=== PATIENT | female | born 1990 | race Hispanic/Latino ===

== ENCOUNTER 2017-10-24 19:24 | Emergency (ER) | payer OTHER ==
[2017-10-24] MEDS: METOCLOPRAMIDE INJ 10MG/2ML VIAL (J2765) IV (19:45)
[2017-10-24 19:58] LABS: BASO % 0.2 % (0.0-1.0); EOS # 0.2 10^3/uL (0.0-0.50); EOS % 1.2 % (0.0-3.0); HEMATOCRIT 44.2 % (36.0-47.0); HEMOGLOBIN 15.8 g/dl (12.0-16.0); IMMATURE GRANULOCYTE % 0.4 % (0-3.0); LYMPH # 2.2 10^3/uL (1.5-6.5); LYMPH % 16.4 % (24.0-44.0); MEAN CORPUSCULAR HEMOGLOBIN 31.3 pg (27.0-33.0); MEAN CORPUSCULAR HGB CONC 35.7 g/dl (32.0-36.5); MEAN CORPUSCULAR VOLUME 87.7 fl (80.0-96.0); MONO # 0.7 10^3/uL (0.0-0.8); MONO % 5.3 % (0.0-5.0); NEUTROPHILS # 10.2 10^3/uL (1.8-7.7); NEUTROPHILS % 76.5 % (36.0-66.0); PLATELET COUNT, AUTOMATED 355 10^3/uL (150-450); RED BLOOD COUNT 5.04 10^6/uL (4.00-5.40); RED CELL DISTRIBUTION WIDTH 12.2 % (11.5-14.5); WHITE BLOOD COUNT 13.3 10^3/uL (4.0-10.0)
[2017-10-24] MEDS: GASTROGRAFIN SOLUTION 30ML PO ×2 (20:15→20:45)
[2017-10-24 20:19] LABS: CONTROL LINE HCG INT CTR LINE PRESENT; HCG, SERUM QUALITATIVE NEGATIVE (NEGATIVE)
[2017-10-24 20:22] LABS: ALKALINE PHOSPHATASE 102 U/L (45-117); ALT/SGPT 161 U/L (12-78); ANION GAP 13 MEQ/L (8-16); AST/SGOT 60 U/L (7-37); BLOOD UREA NITROGEN 20 MG/DL (7-18); CARBON DIOXIDE LEVEL 18 MEQ/L (21-32); CHLORIDE LEVEL 110 MEQ/L (98-107); CREATININE FOR GFR 0.68 MG/DL (0.55-1.30); GLOMERULAR FILTRATION RATE > 60.0 (>60); GLUCOSE, FASTING 100 MG/DL (70-100); POTASSIUM SERUM 3.6 MEQ/L (3.5-5.1); SODIUM LEVEL 141 MEQ/L (136-145)
[2017-10-24 20:23] LABS: ALBUMIN 3.9 GM/DL (3.2-5.2); ALBUMIN/GLOBULIN RATIO 0.93 (1.00-1.93); BILIRUBIN,DIRECT 0.4 MG/DL (0.0-0.2); BILIRUBIN,TOTAL 1.1 MG/DL (0.2-1.0); LIPASE 192 U/L (73-393); TOTAL PROTEIN 8.1 GM/DL (6.4-8.2)
[2017-10-24] MEDS: NS 1,000 ML IV ×2 (21:00→23:25)
[2017-10-24] MEDS: MORPHINE 2 MG/ML 1ML SYRINGE (J2270) IV (21:25)
[2017-10-24] MEDS ORDERED: ISOVUE-370 76% 100ML VIAL (Q9967) As Ordered (21:27)
[2017-10-24 21:44] LABS: APPEARANCE, URINE CLOUDY (CLEAR); BACTERIA, URINE AUTO 3+ (NEGATIVE); BILIRUBIN, URINE AUTO 1+ (NEGATIVE); BLOOD, URINE BLOOD 3+ (NEGATIVE); COLOR, URINE AMBER (YELLOW); GLUCOSE, URINE (UA) AUTO NEGATIVE (NEGATIVE); KETONE, URINE AUTO 2+ mg/dL (NEGATIVE); LEUKOCYTE ESTERASE, URINE AUTO 1+ (NEGATIVE); MUCUS, URINE SMALL (NEGATIVE); NITRITE, URINE AUTO NEGATIVE (NEGATIVE); PROTEIN, URINE AUTO 2+ mg/dL (NEGATIVE); RBC, URINE AUTO TNTC /HPF (0-3); SPECIFIC GRAVITY URINE AUTO 1.032 (1.002-1.035); SQUAMOUS EPITHELIAL CELL UR AU 11 /HPF (0-6); WBC, URINE AUTO 35 /HPF (0-3)
[2017-10-24] MEDS: CEFTRIAXONE SOD 1 GM in APPROPRIATE DILUENT 1 EA IV (22:00)
[2017-10-24] MEDS: MORPHINE 4 MG/ML 1ML VIAL (J2270) IV (22:30)
[2017-10-24] MEDS ORDERED: NS 1,000 ML IV (23:30)
== END 2017-10-25 01:14 | disposition home or self-care (01) ==
LOC: M ED 10-25 01:14
DX: N39.0 Urinary tract infection, site not specified (principal); E86.0 Dehydration; K80.20 Calculus of gallbladder without cholecystitis without obstruction; R91.8 Other nonspecific abnormal finding of lung field; G40.909 Epilepsy, unspecified, not intractable, without status epilepticus; F33.9 Major depressive disorder, recurrent, unspecified; G89.29 Other chronic pain; R10.9 Unspecified abdominal pain; Z98.84 Bariatric surgery status; Z79.899 Other long term (current) drug therapy; Z88.8 Allergy status to other drugs, medicaments and biological substances
CPT/HCPCS: J2270

== ENCOUNTER 2017-10-26 14:34 | Emergency (ER) | payer OTHER ==
[2017-10-26] MEDS: NS 1,000 ML IV (16:44)
[2017-10-26] MEDS ORDERED: ONDANSETRON 4 MG ORAL DISINTEGRATING TAB (S0181) PO (16:45)
[2017-10-26 16:50] LABS: BASO % 0.2 % (0.0-1.0); EOS # 0.1 10^3/uL (0.0-0.50); EOS % 1.3 % (0.0-3.0); HEMATOCRIT 38.7 % (36.0-47.0); IMMATURE GRANULOCYTE % 0.3 % (0-3.0); LYMPH # 1.8 10^3/uL (1.5-6.5); LYMPH % 17.8 % (24.0-44.0); MEAN CORPUSCULAR HEMOGLOBIN 31.1 pg (27.0-33.0); MEAN CORPUSCULAR HGB CONC 35.4 g/dl (32.0-36.5); MEAN CORPUSCULAR VOLUME 87.8 fl (80.0-96.0); MONO # 0.6 10^3/uL (0.0-0.8); MONO % 5.5 % (0.0-5.0); NEUTROPHILS # 7.7 10^3/uL (1.8-7.7); NEUTROPHILS % 74.9 % (36.0-66.0); PLATELET COUNT, AUTOMATED 339 10^3/uL (150-450); RED BLOOD COUNT 4.41 10^6/uL (4.00-5.40); WHITE BLOOD COUNT 10.3 10^3/uL (4.0-10.0)
[2017-10-26 16:55] LABS: CONTROL LINE UCG INT CTR LINE PRESENT; URINE PREG TEST NEGATIVE (NEGATIVE)
[2017-10-26 16:58] LABS: KETONE, URINE AUTO RFX 2+ mg/dL (NEGATIVE); LEUKOCYTE ESTERASE UR AUTO RFX NEGATIVE (NEGATIVE); MUCUS, URINE RFX SMALL (NEGATIVE); NITRITE, URINE AUTO RFX NEGATIVE (NEGATIVE); RBC, URINE AUTO RFX 144 /HPF (0-3); SQUAM EPITHELIAL CELL UR AURFX 2 /HPF (0-6); WBC, URINE AUTO RFX 11 /HPF (0-3)
[2017-10-26 17:02] LABS: HEMOGLOBIN 13.7 g/dl (12.0-16.0)
[2017-10-26 17:03] LABS: INR 1.17; PROTHROMBIN TIME 15.2 SECONDS (12.4-14.5)
[2017-10-26 17:04] LABS: PARTIAL THROMBOPLASTIN TIME 33.2 SECONDS (26.8-37.9)
[2017-10-26 17:15] LABS: ALBUMIN/GLOBULIN RATIO 1.08 (1.00-1.93); ALKALINE PHOSPHATASE 98 U/L (45-117); ALT/SGPT 94 U/L (12-78); AMYLASE 106 U/L (25-115); ANION GAP 12 MEQ/L (8-16); AST/SGOT 24 U/L (7-37); BILIRUBIN,DIRECT 0.4 MG/DL (0.0-0.2); BLOOD UREA NITROGEN 12 MG/DL (7-18); CALCIUM LEVEL 8.9 MG/DL (8.5-10.1); CARBON DIOXIDE LEVEL 20 MEQ/L (21-32); CHLORIDE LEVEL 108 MEQ/L (98-107); CREATININE FOR GFR 0.56 MG/DL (0.55-1.30); GLOMERULAR FILTRATION RATE > 60.0 (>60); GLUCOSE, FASTING 83 MG/DL (70-100); LIPASE 344 U/L (73-393); POTASSIUM SERUM 3.7 MEQ/L (3.5-5.1); SODIUM LEVEL 140 MEQ/L (136-145); TOTAL PROTEIN 7.7 GM/DL (6.4-8.2)
[2017-10-26 17:15] LABS: LACTIC ACID SEPSIS PROTOCOL 1.1 MMOL/L (0.4-2.0)
== END 2017-10-26 18:47 | disposition home or self-care (01) ==
LOC: M ED 14:34
DX: K80.70 Calculus of gallbladder and bile duct without cholecystitis without obstruction (principal); E86.0 Dehydration; R11.10 Vomiting, unspecified; J45.909 Unspecified asthma, uncomplicated; F32.9 Major depressive disorder, single episode, unspecified; D56.0 Alpha thalassemia; Z98.84 Bariatric surgery status; Z98.890 Other specified postprocedural states; Z88.6 Allergy status to analgesic agent; Z79.899 Other long term (current) drug therapy; Z79.2 Long term (current) use of antibiotics
CPT/HCPCS: 76705

== ENCOUNTER → 2018-03-31 | Outpatient (REF) | payer OTHER | LOC: M SFHCLERA 13:26 | DX: Z98.84 Bariatric surgery status (principal); H53.2 Diplopia ==

== ENCOUNTER 2019-03-12 21:24 | Emergency (ER) | payer OTHER ==
[~2019-03-12] VITALS: Ht 152.4 cm; Wt 62.7 kg
[~2019-03-12 21:24] MED LIST: ACTI300C PO; CIPR-249 PO; CLON0.5T8 PO; DULC5TAB PO; KEPP1TAB2 PO; OXYC1SOL3 PO; PAXI10TA12 PO; TOPA100T12 PO; maxalt PO
[2019-03-12 21:53] LABS: BASO % 0.4 % (0.0-1.0); EOS # 0.1 10^3/uL (0.0-0.50); EOS % 1.4 % (0.0-3.0); HEMATOCRIT 38.4 % (36.0-47.0); HEMOGLOBIN 13.5 g/dl (12.0-15.5); LYMPH # 2.7 10^3/uL (1.5-4.5); LYMPH % 33.3 % (24.0-44.0); MEAN CORPUSCULAR HEMOGLOBIN 32.9 pg (27.0-33.0); MEAN CORPUSCULAR HGB CONC 35.2 g/dl (32.0-36.5); MEAN CORPUSCULAR VOLUME 93.7 fl (80.0-96.0); MONO # 0.5 10^3/uL (0.0-0.8); MONO % 6.7 % (0.0-5.0); NEUTROPHILS # 4.7 10^3/uL (1.8-7.7); PLATELET COUNT, AUTOMATED 284 10^3/uL (150-450)
[2019-03-12 22:13] LABS: HCG, SERUM QUALITATIVE POSITIVE (NEGATIVE)
[2019-03-12 22:20] LABS: ALBUMIN 3.5 GM/DL (3.2-5.2); ALT/SGPT 19 U/L (12-78); BILIRUBIN,DIRECT 0.1 MG/DL (0.0-0.2); BILIRUBIN,TOTAL 0.4 MG/DL (0.2-1.0); BLOOD UREA NITROGEN 15 MG/DL (7-18); CALCIUM LEVEL 8.3 MG/DL (8.5-10.1); CARBON DIOXIDE LEVEL 26 MEQ/L (21-32); CHLORIDE LEVEL 108 MEQ/L (98-107); CREATININE FOR GFR 0.46 MG/DL (0.55-1.30); GLOMERULAR FILTRATION RATE > 60.0 (>60); GLUCOSE, FASTING 87 MG/DL (70-100); LIPASE 182 U/L (73-393); POTASSIUM SERUM 3.5 MEQ/L (3.5-5.1); SODIUM LEVEL 141 MEQ/L (136-145); TOTAL PROTEIN 6.8 GM/DL (6.4-8.2)
[2019-03-12 23:27] LABS: HCG, SERUM QUANTITATIVE 4202 MIU/ML
--- NOTE | 2019-03-13 00:52 | REPVR ---
EXAM: US Duplex Artery or Vein of the Reproductive Organs, Limited Ovaries EXAM DATE/TIME: 03/12/2019 11:19 PM CLINICAL HISTORY: 28 years old, female; complicated by abdominal or pelvic pain; Lower; First trimester; Gestational age or lmp: 02/05/19; TECHNIQUE: Imaging protocol: Real-time duplex ultrasound scan of the arterial or venous flow with salcido scale, color Doppler flow and spectral waveform analysis. Limited duplex exam focused on the ovaries. Duplex exam was performed to evaluate for ovarian torsion or mass. COMPARISON: No relevant prior studies available. FINDINGS: Right adnexa: The right ovary was not visualized due to obscuration by intestinal gas. Left adnexa: The color Doppler flow and spectral waveforms within the left ovary are within normal limits, without evidence for left ovarian torsion. IMPRESSION: Normal duplex of the left ovary. No evidence for left ovarian torsion. EXAM: US First Trimester, Transabdominal and US , Transvaginal EXAM DATE/TIME: 03/12/2019 11:19 PM CLINICAL HISTORY: 28 years old, female; complicated by abdominal or pelvic pain; Lower; First trimester; Gestational age or lmp: 02/05/19; TECHNIQUE: Imaging protocol: Real-time transabdominal obstetrical ultrasound of the maternal pelvis and a first trimester , less than 14 weeks 0 days, with image documentation. Transvaginal imaging was used for better evaluation of the fetus and adnexa. COMPARISON: No relevant prior studies available. FINDINGS: GESTATION: Gestation: There is a single intrauterine gestational sac. No pole or yolk sac is visualized. Heart rate: No heart activity is visualized. Placenta: There is an 8 mm x 8 mm x 3 mm hypoechoic fluid collection surrounding less than 25% of the circumference of the gestational sac, which is compatible with a small subchorionic hemorrhage. Amniotic fluid: Amniotic and chorionic fluid are normal for gestational age. BIOMETRY: Estimated gestational age by US: 5 weeks 3 days Estimated gestational age by LMP: 5 weeks 0 days Mean sac diameter: 6.6 mm Estimated due date by US: 11/09/2019 Estimated due date by LMP: 11/12/2019 MATERNAL: Uterus: The anteverted uterus measures 11.2 cm x 5.8 cm x 7.7 cm the Cervix: Unremarkable. Right adnexa: The right ovary was not visualized due to obscuration by intestinal gas. Left adnexa: The left ovary measures 4.3 cm x 2.8 cm x 2.3 cm and contains a 2.1 cm x 2.5 cm x 2.4 cm simple cyst. Intraperitoneal: No intraperitoneal free fluid. IMPRESSION: 1. Single intrauterine gestational sac with a mean sac diameter of 6.6 mm, corresponding to a gestational age of 5 weeks 3 days and estimated due date on 11/09/2019. No pole identified, which may be secondary to the early gestational age. Correlation with serial serum beta hCG levels and a short term follow up obstetrical ultrasound in 7-14 days or as clinically indicated are suggested for reevaluation. 2. Small subchorionic hemorrhage measuring 8 mm x 8 mm x 3 mm surrounding less than 25% of the circumference of the gestational sac. 3. 2.1 cm x 2.5 cm x 2.4 cm simple left ovarian cyst. Electronically signed by: Gee Gillespie On 03/13/2019 00:51:25 AM
[2019-03-13 01:06] VITALS: BP 101/55
== END 2019-03-13 01:18 | disposition home or self-care (01) ==
LOC: M ED 21:24
DX: O20.0 Threatened abortion (principal); O99.019 Anemia complicating pregnancy, unspecified trimester; O34.81 Maternal care for other abnormalities of pelvic organs, first trimester; Z98.84 Bariatric surgery status; Z3A.01 Less than 8 weeks gestation of pregnancy; Z79.899 Other long term (current) drug therapy; Z88.8 Allergy status to other drugs, medicaments and biological substances

== ENCOUNTER 2019-07-07 14:42 | Outpatient (CLI) | payer OTHER ==
[~2019-07-07] VITALS: Ht 152.4 cm; Wt 64.3 kg
[2019-07-07 14:55] VITALS: BP 104/59
[2019-07-07] MEDS ORDERED: FOLI1TAB11 PO (15:05)
[2019-07-07] MEDS ORDERED: PRENTAB9 PO (15:05)
--- NOTE | 2019-07-07 19:15 | HPE ---
DATE OF ADMISSION: 07/07/2019 A 29-year-old 7, para 4, abortio 2, last menstrual period (LMP) 02/05/2019, estimated date of confinement (EDC) 11/12/2019 at 21 weeks 3 days with history of lower abdominal pain and cramping all day today. Came in after work. No vaginal bleeding or vaginal loss. Risk factors is she has abnormal Pap smear, history of delivery between 32 and 36 weeks, anemia. She has had a history of blood transfusion, etiology unknown, depression, insomnia, posttraumatic stress disorder (PTSD), schizophrenia sleep apnea but does not use a continuous positive airway pressure (CPAP), gastric bypass, smokes cigarettes, and past history of drug misuse. Presently she is in here with dehydration. Her past history is in 2004 at 34 weeks, spontaneous vaginal delivery, female, 6 pounds 14 ounces. In 2005 at 35 weeks, spontaneous vaginal delivery, male, 5 pounds 12 ounces. In 2009 at 35 weeks, spontaneous vaginal delivery, and in 2011 a 32-week spontaneous vaginal delivery. On examination, no acute distress. Abdomen soft. Four-quadrant bowel sounds are noted. Appropriate symphysis fundus height. heart is present on the monitor. No contractions. No decelerations. Temperature is 98.1, respirations are 17, pulse 98, blood pressure 104/59. Urine is 1015, pH 7, and she has 3+ ketones. Our plan of management is to hydrate the patient until she is ketone negative. We booked an anatomy scan at [facility], for which she will make an appointment. She has an appointment Dr. Fatima tomorrow. Pelvic rest was re-emphasized. We also educated her regarding delivery, kick chart, premature rupture of membranes, bleeding, and when to call the provider. The patient will be discharged after she is ketone clear. To followup with Dr. Fatima tomorrow morning.
== END 2019-07-07 19:05 | disposition home or self-care (01) ==
LOC: M LDO 14:42
PROVIDERS: ATTEND Obstetrics & Gynecology
DX: O26.892 Other specified pregnancy related conditions, second trimester (principal); Z3A.21 21 weeks gestation of pregnancy
CPT/HCPCS: G0378; G0463

== ENCOUNTER 2019-07-19 20:51 | Outpatient (CLI) | payer OTHER, SELFPAY ==
[~2019-07-19] VITALS: Ht 154.9 cm; Wt 62.4 kg
[~2019-07-19 20:51] MED LIST changes: +CLON0.5T2 PO; -CLON0.5T8 PO; +FOLI1TAB11 PO; +PRENTAB9 PO
[2019-07-19 21:13] VITALS: BP 100/53
[2019-07-19] MEDS ORDERED: metroNIDAZOLE (FLAGYL) 500 MG TAB PO ONE (22:15)
[2019-07-19 22:28] LABS: APPEARANCE, URINE CLOUDY (CLEAR); BACTERIA, URINE AUTO 1+ (NEGATIVE); BILIRUBIN, URINE AUTO NEGATIVE (NEGATIVE); BLOOD, URINE BLOOD NEGATIVE (NEGATIVE); COLOR, URINE YELLOW (YELLOW); GLUCOSE, URINE (UA) AUTO NEGATIVE (NEGATIVE); KETONE, URINE AUTO NEGATIVE (NEGATIVE); LEUKOCYTE ESTERASE, URINE AUTO 3+ (NEGATIVE); MUCUS, URINE SMALL (NEGATIVE); NITRITE, URINE AUTO NEGATIVE (NEGATIVE); PROTEIN, URINE AUTO NEGATIVE (NEGATIVE); RBC, URINE AUTO 2 /HPF (0-3); SPECIFIC GRAVITY URINE AUTO 1.014 (1.002-1.035); SQUAMOUS EPITHELIAL CELL UR AU 15 /HPF (0-6); WBC, URINE AUTO 14 /HPF (0-3)
--- NOTE | 2019-07-19 22:40 | IPNPDOC ---
Text Note Date of Service The patient was seen on 07/19/19. NOTE patient is a 29 yo @ 23+3wks presents with concern for lower abdominal cramping x 1 day. feels like sharp shooting. patient unclear as to how long it lasts. worse when she is sitting up for long time or walking. Also having cramping with urinating. coitus about 1 week ago. denies LOF/VB. Vitals: normal NAD abd: nd, soft, gravid, nt le: no edema/erythema/tenderness speculum exam: frothy discharge, cervix visually long and closed doptones: 140's toco: quiet wet prep: neg trich, pos clue cells katelyn: neg buds/hyphae ua: contaminated urine culture pending a/p patient is a @ 23+3wks with BV. treat with flagyl. return precautions given. patient given 1 dose of flagyl tonight. rest of medication to be picked up at [place] in AM. VS,Fishbone, I+O VS, Fishbone, I+O Vital Signs Date Time Temp Pulse Resp B/P (MAP) Pulse Ox O2 Delivery O2 Flow Rate FiO2 07/19/19 21:13 97.9 85 16 100/53 (69) KYLEE CARRASCO DO Jul 19, 2019 22:17
== END 2019-07-19 22:45 | disposition home or self-care (01) ==
LOC: M LDO 20:51
PROVIDERS: ATTEND Obstetrics & Gynecology
DX: O26.892 Other specified pregnancy related conditions, second trimester (principal); R10.30 Lower abdominal pain, unspecified; M54.5 Low back pain; O23.599 Infection of other part of genital tract in pregnancy, unspecified trimester; B96.89 Other specified bacterial agents as the cause of diseases classified elsewhere; Z3A.23 23 weeks gestation of pregnancy
CPT/HCPCS: 59025; 81001; 87086; G0378; G0463

== ENCOUNTER 2019-08-18 13:31 | Outpatient (CLI) | payer OTHER, SELFPAY ==
[~2019-08-18] VITALS: Ht 152.4 cm; Wt 65.0 kg
[2019-08-18 14:00] VITALS: BP 109/59
[2019-08-18 14:20] VITALS: BP 109/59
--- NOTE | 2019-08-18 15:30 | REP ---
Clinical: Pelvic pain and cramping. Comparison: 03/12/2019. Findings: Examination demonstrates a single live intrauterine in cephalic presentation. motion is identified by technologist. Placenta is noted anterior and grade I without evidence for placenta previa or abruption. Amniotic fluid volume is normal. Cervix measures 3.1 cm in length and appears closed. Gestational age by LMP 27 weeks 5 days with JENS 11/12/2019 . FHR equals 131 beats per minute. Impression: Single live intrauterine . No gross abnormalities are identified. Electronically Signed by Zachary Myers MD 08/18/2019 03:22 P
[2019-08-18 15:58] LABS: APPEARANCE, URINE CLEAR (CLEAR); BACTERIA, URINE AUTO NEGATIVE (NEGATIVE); BILIRUBIN, URINE AUTO NEGATIVE (NEGATIVE); BLOOD, URINE BLOOD NEGATIVE (NEGATIVE); COLOR, URINE YELLOW (YELLOW); GLUCOSE, URINE (UA) AUTO NEGATIVE (NEGATIVE); KETONE, URINE AUTO TRACE mg/dL (NEGATIVE); LEUKOCYTE ESTERASE, URINE AUTO NEGATIVE (NEGATIVE); MUCUS, URINE SMALL (NEGATIVE); NITRITE, URINE AUTO NEGATIVE (NEGATIVE); PROTEIN, URINE AUTO NEGATIVE (NEGATIVE); RBC, URINE AUTO 0 /HPF (0-3); SPECIFIC GRAVITY URINE AUTO 1.016 (1.002-1.035); SQUAMOUS EPITHELIAL CELL UR AU 2 /HPF (0-6); WBC, URINE AUTO 0 /HPF (0-3)
--- NOTE | 2019-08-18 21:16 | IPNPDOC ---
Text Note Date of Service The patient was seen on 08/18/19. NOTE Triage Note Hilda is a 29yo with SIUP at 27w5d by lmp c/w 8wk u/s presenting for ctx earlier in the morning that went away, but since then she has felt pelvic pressure. No LOF, no vaginal bleeding. Feels good movement. No f/c/n/v/SOB/CP. Vitals wnl, afebrile General: WDWN, resting in bed sitting comfortably Abdomen: soft, gravid, NTTP Extremities: no edema of BLE Cat I FHRT with +accels, -decels, mod zoila. Reassuring for gestational age. [place]: no ctx Labs: Urinalysis- no WBC, no bacteria, neg for leuk esterase and nitrite Radiology: TVUS for cervical length Clinical: Pelvic pain and cramping. Comparison: 03/12/2019. Findings: Examination demonstrates a single live intrauterine in cephalic presentation. motion is identified by technologist. Placenta is noted anterior and grade I without evidence for placenta previa or abruption. Amniotic fluid volume is normal. Cervix measures 3.1 cm in length and appears closed. Gestational age by LMP 27 weeks 5 days with JENS 11/12/2019 . FHR equals 131 beats per minute. Impression: Single live intrauterine . No gross abnormalities are identified. Electronically Signed by Zachary Myers MD 08/18/2019 03:22 P Assessment: Hilda is a 29yo with SIUP at 27w5d by lmp c/w 8wk u/s with NO e/o PTL with no ctx on toco, cervical length 3.1cm. Urinalysis shows no e/o infection. Reassuring status. Vitals wnl, benign exam. Plan: -Safe for discharge home -provided reassurance -urine culture pending -encouraged good hydration -keep next routine OB appt in clinic -discussed return precautions Dr. Audra Grimes MD VS,Yumiko I+O VSYumiko I+O Vital Signs Date Time Temp Pulse Resp B/P (MAP) Pulse Ox O2 Delivery O2 Flow Rate FiO2 08/18/19 14:55 95 08/18/19 14:20 97.4 18 109/59 (76) Audra Grimes MD Aug 18, 2019 21:16
== END 2019-08-18 16:30 | disposition home or self-care (01) ==
LOC: M LDO 13:31
PROVIDERS: ATTEND Obstetrics & Gynecology
DX: O47.02 False labor before 37 completed weeks of gestation, second trimester (principal); Z3A.27 27 weeks gestation of pregnancy
CPT/HCPCS: 59025; 76817; 81001; 87086; G0378; G0463

== ENCOUNTER 2019-09-15 11:50 | Outpatient (CLI) | payer OTHER ==
[~2019-09-15] VITALS: Ht 152.4 cm; Wt 66.1 kg
[2019-09-15 12:06] VITALS: BP 91/55
[2019-09-15 15:08] VITALS: BP 103/62
--- NOTE | 2019-09-15 17:15 | IPNPDOC ---
Text Note Date of Service The patient was seen on 09/15/19. NOTE Triage Note Hilda is a 29yo with SIUP at approx 31wk presenting for cough, body aches, diarrhea. No emesis. No runny nose. She reports her son was diagnosed with influenza B and strep throat yesterday at the ER. She is concerned she may also have the flu. (She was advised to go to the ER to avoid possibly exposing other patients to the flu, but came to L&D despite instructions). No LOF, no vaginal bleeding. Feels good movement. No f/c/n/v/SOB/CP. Vitals wnl, afebrile General: WDWN, resting in bed sitting comfortably Abdomen: soft, gravid, NTTP Extremities: no edema of BLE Cat I FHRT with +accels, -decels, mod zoila. Reassuring for gestational age. [place]: no ctx Labs: Respiratory panel negative for all tested viruses Assessment: Hilda is a 29yo with SIUP at approx 31wk with negative testing for influenza (negative respiratory panel). No ctx on toco, reassuring status. Vitals wnl, benign exam. Plan: -Safe for discharge home -provided reassurance -encouraged good hydration -keep next routine OB appt in clinic -discussed return precautions Dr. Audra Grimes MD VS,Yumiko, I+O VS, Yumiko, I+O Vital Signs Date Time Temp Pulse Resp B/P (MAP) Pulse Ox O2 Delivery O2 Flow Rate FiO2 09/15/19 15:08 99.1 129 18 103/62 (76) 09/15/19 12:06 97 Audra Grimes MD Sep 15, 2019 17:15
== END 2019-09-15 15:47 | disposition home or self-care (01) ==
LOC: M LDO 11:50
PROVIDERS: ATTEND Obstetrics & Gynecology
DX: O26.893 Other specified pregnancy related conditions, third trimester (principal); R19.7 Diarrhea, unspecified; M54.9 Dorsalgia, unspecified; R05 Cough; R10.84 Generalized abdominal pain; Z3A.31 31 weeks gestation of pregnancy
CPT/HCPCS: 59025; 87486; 87581; 87633; 87798; G0378; G0463

== ENCOUNTER 2019-10-05 02:02 | Outpatient (CLI) | payer OTHER ==
[~2019-10-05] VITALS: Ht 152.4 cm; Wt 67.3 kg
[2019-10-05 02:21] VITALS: BP 99/62
--- NOTE | 2019-10-05 03:04 | IPNPDOC ---
Text Note Date of Service The patient was seen on 10/05/19. NOTE Triage Note Hilda is a 29yo with SIUP at 34w4d by lmp c/w 8wk u/s presenting with CC of leakage of fluid that occurred while she was in bed tonight. She states that it "smells sweet". Had intercourse yesterday. She did not need to wear a pad here but has felt fluid coming out, wet her underwear. No regular/painful ctx. No vaginal bleeding. Feels good movement. No f/c/n/v/SOB/CP. 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 [place]: occasional ctx Labs: Negative ferning but sperm present Assessment: Hilda is a 29yo with SIUP at 34w4d by lmp c/w 8wk u/s with NO e/o PPROM or PTL. Negative nitrazine/ferning/pooling/valsalva and PRIMITIVO is 10cm. Sperm present on slide, so fluid leakage is semen. Reassuring status. Vitals wnl, benign exam. Plan: -Safe for discharge home -provided reassurance -encouraged good hydration -keep next routine OB appt in clinic on Sep -discussed return precautions Dr. Audra Grimes MD VS,Yumiko, I+O VS, Yumiko, I+O Vital Signs Date Time Temp Pulse Resp B/P (MAP) Pulse Ox O2 Delivery O2 Flow Rate FiO2 10/05/19 02:21 98 99/62 (74) 10/05/19 02:20 98.5 18 Audra Grimes MD Oct 05, 2019 03:04
== END 2019-10-05 02:59 | disposition home or self-care (01) ==
LOC: M LDO 02:02
PROVIDERS: ATTEND Obstetrics & Gynecology
DX: Z03.72 Encounter for suspected placental problem ruled out (principal); Z3A.34 34 weeks gestation of pregnancy; Z88.6 Allergy status to analgesic agent
CPT/HCPCS: 59025; 76815; G0378; G0463

== ENCOUNTER 2019-10-07 10:14 | Outpatient (CLI) | payer OTHER ==
[~2019-10-07] VITALS: Ht 154.9 cm; Wt 66.2 kg
[2019-10-07] VITALS (8 sets, daily range): BP systolic 107–115; BP diastolic 57–77
[2019-10-07 11:45] LABS: ALT/SGPT 32 U/L (12-78); BILIRUBIN,TOTAL 0.7 MG/DL (0.2-1.0); CREATININE FOR GFR 0.31 MG/DL (0.55-1.30); GLOMERULAR FILTRATION RATE > 60.0 (>60); LDH LACTATE DEHYDROGENASE 154 U/L (84-246)
[2019-10-07] MEDS ORDERED: FLUCONAZOLE 50MG TABLET PO ONE (12:00)
[2019-10-07 12:32] LABS: TOTAL PROTEIN,RANDOM URINE 53.8 MG/DL (0.0-12.0)
--- NOTE | 2019-10-07 14:46 | IPNPDOC ---
Text Note Date of Service The patient was seen on 10/07/19. NOTE Patient is a 28yo 34.6wks by LMP c/w 8wk US. C/o cramps every 5minutes, severe headache for 3 days and visual disturbances. No movement for 1day. No loss of fluid. Pinkish discharge when wiping once today. States she has been tkaing in fluids but states otherwise. Can't take tylenol and has a h/o migraines. FHT Cat 1, 140s, reactive, no decels, ctx [id number]. SVE FT/20/-3. [place] white discharge c/w blanquita infection. Preeclampsia panel performed and WNL. Patient hydrated and symptoms resolved, except headache went to "mild". Diflucan 150mg PO x1 given. Recheck SVE unchanged except no discharge after 3hrs. Patient monitored for 3hrs and no evidence of PTL or preeclampsia. Fetus reassuring and patient felt movement. Patient disc harged home with PTL, PPROM and kick count and preeclampsia precautions. VS,Fishbone, I+O VS, Fishbone, I+O Laboratory Tests 10/07/19 11:01 Vital Signs Date Time Temp Pulse Resp B/P (MAP) Pulse Ox O2 Delivery O2 Flow Rate FiO2 10/07/19 12:58 84 18 110/64 (79) 10/07/19 10:28 98.4 Roz Pagan MD Oct 07, 2019 14:46
== END 2019-10-07 13:36 | disposition home or self-care (01) ==
LOC: M LDO 10:14
PROVIDERS: ATTEND Obstetrics & Gynecology
DX: O26.893 Other specified pregnancy related conditions, third trimester (principal); N89.8 Other specified noninflammatory disorders of vagina; R51 Headache; Z3A.34 34 weeks gestation of pregnancy
CPT/HCPCS: 36415; 59025; 82247; 82565; 82570; 83615; 84156; 84450; 84460; 84550; G0378; G0463

== ENCOUNTER 2019-10-24 12:28 | Outpatient (CLI) | payer OTHER ==
[~2019-10-24] VITALS: Ht 152.4 cm; Wt 66.1 kg
[2019-10-24 12:47] VITALS: BP 109/73
[2019-10-24] MEDS ORDERED: FLUCONAZOLE 50MG TABLET PO ONE (14:00)
== END 2019-10-24 14:11 | disposition home or self-care (01) ==
LOC: M LDO 12:28
PROVIDERS: ATTEND Advanced Practice Midwife
DX: O36.8130 Decreased fetal movements, third trimester, not applicable or unspecified (principal); Z3A.37 37 weeks gestation of pregnancy; B37.3 Candidiasis of vulva and vagina
CPT/HCPCS: 59025; 76815; G0378; G0463

== ENCOUNTER 2019-11-02 17:27 | Outpatient (CLI) | payer OTHER ==
[~2019-11-02] VITALS: Ht 152.4 cm; Wt 66.7 kg
[2019-11-02] MEDS ORDERED: FLUCONAZOLE 50MG TABLET PO ONE ×2 (18:45→19:00)
[2019-11-02] MEDS ORDERED: FLUCONAZOLE 100 MG TAB PO ONE (19:00)
== END 2019-11-02 19:15 | disposition home or self-care (01) ==
LOC: M LDO 17:27
PROVIDERS: ATTEND Advanced Practice Midwife
DX: O47.1 False labor at or after 37 completed weeks of gestation (principal); Z3A.38 38 weeks gestation of pregnancy; O26.893 Other specified pregnancy related conditions, third trimester; N89.8 Other specified noninflammatory disorders of vagina; Z91.018 Allergy to other foods; Z88.6 Allergy status to analgesic agent
CPT/HCPCS: 59025; G0378; G0463

== ENCOUNTER 2019-11-04 06:36 | Inpatient (IN) | payer OTHER ==
[~2019-11-04] VITALS: Ht 152.4 cm; Wt 66.3 kg
[2019-11-04] VITALS (32 sets, daily range): BP systolic 85–132; BP diastolic 51–79
[2019-11-04 08:04] LABS: HEMOGLOBIN 9.8 g/dl (12.0-15.5); MEAN CORPUSCULAR HEMOGLOBIN 24.4 pg (27.0-33.0); MEAN CORPUSCULAR HGB CONC 31.6 g/dl (32.0-36.5); MEAN CORPUSCULAR VOLUME 77.3 fl (80.0-96.0); PLATELET COUNT, AUTOMATED 319 10^3/uL (150-450); RED BLOOD COUNT 4.01 10^6/uL (4.00-5.40); WHITE BLOOD COUNT 6.4 10^3/uL (4.0-10.0)
[2019-11-04] MEDS ORDERED: miSOPROStol 25 MCG 1/4 TAB (S0191) PO ONE (10:15)
[2019-11-04] MEDS: LR 1,000 ML IV SCH ×3 (10:18→18:07)
[2019-11-04] MEDS ORDERED: FENTANYL 2MCG/ML ROPIVACAINE 0.2% IN 0.9% NACL 100ML IVBAG As Ordered ONE (13:53)
[2019-11-04] MEDS ORDERED: OXYTOCIN 30 UNITS IN 0.9% NaCl 500ML IV BAG (J2590) As Ordered ONE (14:11)
[2019-11-04] MEDS ORDERED: FENTANYL/ROPIVACAINE/NACL BAG 100 ML EPIDURAL SCH (15:45)
[2019-11-04] MEDS ORDERED: NALOXONE INJ 0.4 MG/1 ML VIAL (J2310) IV PRN (15:45)
[2019-11-04] MEDS ORDERED: LACTATED RINGER'S 1000 ML IV PRN (15:45)
[2019-11-04] MEDS ORDERED: EPIDURAL COMMENT XX SCH (15:45)
[2019-11-04] MEDS ORDERED: REFRIGERATOR IV KEYS XX PRN (15:45)
[2019-11-04] MEDS ORDERED: diphenhydrAMINE INJ 50MG/ML VIAL (J1200) IV PRN (15:45)
[2019-11-04] MEDS ORDERED: ONDANSETRON 4MG/2ML VIAL (J2405) IV PRN (15:45)
[2019-11-04] MEDS ORDERED: EPIDURAL/PCA KEYS XX PRN (15:45)
[2019-11-04] MEDS: ePHEDrine SULFATE 25 MG/5 ML(5MG/ML) SYRINGE IV PRN ×3 (16:13→16:21)
[2019-11-04] MEDS: ePHEDrine SULFATE 25 MG/5 ML(5MG/ML) SYRINGE IV SCH ×2 (16:30→23:20)
[2019-11-04] MEDS ORDERED: METHYLERGONOVINE MALEATE 0.2 MG/ML VIAL (J2210) As Ordered ONE (20:05)
[2019-11-04 23:08] LABS: CORD GAS ABE A -4.2; CORD GAS HCO3 A 19.4 MEQ/L; CORD GAS O2 SAT A 86.8 %; CORD GAS PCO2 A 31.7 mmHg; CORD GAS PH A 7.404 UNITS; CORD GAS PO2 A 40.3 mmHg; CORD GAS SBC A 20.8 MEQ/L; CORD GAS TCO2 A 20.3 MEQ/L
[2019-11-04 23:09] LABS: CORD GAS ABE V -4.9; CORD GAS PCO2 V 48.2 mmHg; CORD GAS PH V 7.278 UNITS; CORD GAS SBC V 19.4 MEQ/L; CORD GAS TCO2 V 23.5 MEQ/L
[2019-11-04] MEDS ORDERED: DIBUCAINE 1% OINTMENT 30GM TOP PRN (23:15)
[2019-11-04] MEDS ORDERED: METHYLERGONOVINE MALEATE 0.2 MG TAB PO PRN (23:15)
[2019-11-04] MEDS ORDERED: MEASLES,MUMPS,RUBELLA VACCINE INJ (MMR-II) (90707) SC SCH (23:15)
[2019-11-04] MEDS ORDERED: MOM 30ML SUSPENSION UDC PO PRN (23:15)
[2019-11-04] MEDS ORDERED: DOCUSATE SODIUM 100 MG CAP PO PRN (23:15)
[2019-11-04] MEDS ORDERED: miSOPROStol 200 MCG TAB (S0191) PR ONE ×2 (23:15→23:45)
[2019-11-04] MEDS ORDERED: ANUSOL HC CREAM 30GM TOP PRN (23:15)
[2019-11-04] MEDS ORDERED: OXYTOCIN INJ 10 UNITS/ML VIAL (J2590) IV ONE ×2 (23:15→23:45)
[2019-11-04] MEDS ORDERED: RHOGAM 300 MCG (1500 IU) INJ (J2790) IM SCH (23:15)
[2019-11-04] MEDS: OXYTOCIN DRIP 30 UNITS in IV 1 EA IV ONE ×3 (23:28→23:52)
[2019-11-04] MEDS ORDERED: miSOPROStol 200 MCG TAB (S0191) As Ordered ONE (23:31)
[2019-11-04] MEDS ORDERED: OXYTOCIN INJ 10 UNITS/ML VIAL (J2590) IV STA (23:45)
[2019-11-05 00:06] VITALS: BP 115/66
[2019-11-05 01:14] VITALS: BP 105/59
[2019-11-05 06:00] VITALS: BP 110/67
--- NOTE | 2019-11-05 06:37 | IPN ---
DATE: 11/04/2019 This lady was reassessed after having 25 mg of misoprostol by mouth x1 dose. She got to 6 cm. Category one strip. No hypertonic contractions. She has presently some moderate show. There is a bit of amniotic fluid there, possibly a high leak. On examination, the fetus is occiput transverse (OT), well applied to the cervix. An artificial rupture of membrane (AROM) was done, draining clear liquid. Safe to proceed.
[2019-11-05 07:15] LABS: HEMATOCRIT 30.4 % (36.0-47.0); HEMOGLOBIN 9.8 g/dl (12.0-15.5); MEAN CORPUSCULAR HEMOGLOBIN 24.7 pg (27.0-33.0); MEAN CORPUSCULAR HGB CONC 32.2 g/dl (32.0-36.5); MEAN CORPUSCULAR VOLUME 76.8 fl (80.0-96.0); PLATELET COUNT, AUTOMATED 276 10^3/uL (150-450); RED BLOOD COUNT 3.96 10^6/uL (4.00-5.40); WHITE BLOOD COUNT 11.5 10^3/uL (4.0-10.0)
--- NOTE | 2019-11-05 09:16 | HPE ---
DATE OF ADMISSION: 11/04/2019 This lady is a 28-year-old 7, para 4, abortio 2, last menstrual period is 02/05/2019, EDC is 11/12/2019 at 39 weeks of gestation for induction of labor. She had a previous history of hemorrhage times four with blood transfusions because of being chronically anemic prior to delivery. Risk factors are she has anemia. She had a hemorrhage with blood transfusions. She has had a gastric bypass. She had three deliveries. She is bipolar, schizophrenia has LGSIL on Pap smear, has depression and she has a past history a long time ago of chlamydia positive with multiple negatives after that. PAST HISTORY: Most of it is at [place]. In March 2006, came in with active labor by ambulance at 7 cm, precipitously delivered an at 36 and 6 weeks of gestation with significant anemia and atonic uterus. She required IV iron transfusion. In 2009 at 35 and 3 weeks of gestation had a spontaneous vaginal delivery with hemorrhage, 2 units blood transfusion. She was on a Methergine regime for 24 hours and she had Cytotec. In November 2011, at 32 weeks had a spontaneous vaginal delivery, atonic uterus, anemia and had 2 units transfusion. February 2005 at 34 weeks had PROM, spontaneous vaginal delivery, had anemia and had IV iron transfusion because of being symptomatic. Today her labs are B+, HIV negative, hepatitis negative, RPR negative. PHYSICAL EXAMINATION: Pelvic examination: Cervix posterior, 3 cm, multiparous os, 70% effaced, -3 station. Category one strip. Rubella immune. Varicella immune. Pap showed LGSIL. Urine was positive. Gonorrhea and chlamydia negative. One hour glucose was 154. Because of her bypass surgery, she did finger sticks and apparently those were normal. She is GBS negative. Blood pressure is 100/64, respirations 18, pulse 83, temperature 98.0. Hemoglobin is 9.8, hematocrit 31.0, platelets are 319. The rest of the examination is unremarkable. She is normocephalic, atraumatic. Neck: Full range of motion. Pupils equal and reactive to light. Distal pulses symmetric. No evidence of DVT, PE or superficial phlebitis. Chest is clear bilaterally to the bases. No wheezes or rhonchi. No costovertebral angle tenderness. Abdomen is soft. Four quadrant bowel sounds are noted. Uterus appropriate symphysis fundus height, vertex presenting. She has no rashes, lesions or pruritus. She has multiple tattoos. No arthralgia or myalgia. No complaint joint pain. No complaint cough, wheeze, shortness of breath or dyspnea on exertion. No bleeding. Neuro complete. No incontinency, urgency or frequency. No nausea, vomiting, diarrhea or constipation. She has no diabetic issues or heat or cold sensitivities. She has had an abnormal Pap smear and LGSIL. She has a past history of Chlamydia with test of cure negative. She has had past surgical history of bypass surgery. She has multiple mental issues. She denies smoking, alcohol, drug abuse. She is to a soldier. No domestic violence. We discussed consent for vaginal delivery, which is delivery through the vagina, possibility of vacuum or forceps if needed for maternal or indications. These may assist in vaginal delivery when normal pushing efforts cannot achieve delivery on their own or when deliveries in emergency for the baby's well-being. Medications used to induce or augment labor to achieve vaginal delivery and episiotomy may be required in order to deliver vaginally and some cases when emergencies arise that require emergency section for or maternal indications. Also, there is a risk of atonic uterus, which she has had before. Despite the fact of using medications, the atony of the uterus correlates to the number of deliveries and pregnancies she has had, as well as her chronic anemia and her overall malnourished state. She may require blood transfusion. She may require intensive medical treatment to keep uterus contracted down and if there is an issue with a uncontrolled hemorrhage, which may cause and the high possibility of having a hysterectomy will be entertained. We also discussed the risks of uterine tachysystole or uterine rupture, bleeding or . Medications used are the possibility of Pitocin, Methergine, Cytotec, Hemabate and even a Bakri balloon. The patient expressed understanding of same and agreed to induction of labor. Our plan is to start just with 25 mg of Cytotec, misoprostol orally and assess in 4 hours. The patient is going to be crossed and matched for 2 units of blood, Barron catheter in place, two IV sites and hemorrhage risk of 3. All questions were answered. We had a 1-hour discussion with evaluation.
[2019-11-05] MEDS: PRENATAL VITAMINS CHEWABLE TABLET PO SCH (09:19)
[2019-11-05] MEDS ORDERED: IBUPROFEN 600 MG TAB PO ONE (10:00)
--- NOTE | 2019-11-05 11:02 | IPN ---
DATE: 11/05/2019 This lady is a 29-year-old, 7, now para 5, who was admitted for induction of labor at 39 weeks, having noted to have severe hemorrhage and blood transfusions x4. She was hemorrhage risk free. She was appropriately counseled. There was appropriate adequate IV sites and all matters of medication were on board. She had a spontaneous vaginal delivery of a live female , 7 pounds 1 ounce, 3210 grams, Apgars of 9 and 9 at one and five minutes respectfully. Arterial pH 7.40, base excess -4.2; venous pH 7.27, base excess -4.9. She has to date had a uterus that is behaved, well contracted under Pitocin. She presently still has her two IV sites and she is just finishing up the last bag of Pitocin. She had been given prophylactically Cytotec 1000 mg per rectum and presently is doing well. Her admitting hemoglobin was 9.8, hematocrit 31.0 and platelets were 319. She started off anemic and presently her day #1 hemoglobin is 9.8, hematocrit 30.4 and platelets are 276. Her blood pressure this morning is 110/67, respirations 17, pulse 75, temperature 99.7. She is breast feeding. She is doing well. Our plan of management today is to discontinue the IV site, one of them, keep the other one for 24 hours. To have her monitor blood loss and walk around and mobilize. Should she still be in a stable condition, we will discharge her tomorrow to followup in 6 weeks at [facility]. Because she is chronically anemic and iron deficient, we will at six weeks' time consider with her iron transfusions as she is a gastric bypass, does not eat well and nutrients do not sit well with her.
--- NOTE | 2019-11-05 16:34 | DN ---
DATE: 11/04/2019 This lady is a 7, para 4 admitted for induction of labor at 39 weeks of gestation. She had an epidural in place, a spontaneous vaginal delivery female infant, 7 pounds 1 ounce, 3210 grams, scores of 9 and 9 at one and five minutes respectively. Arterial pH 7.40, base excess -4.2, venous pH 7.27, base excess -4.9. Her risk factors is she has anemia, hemorrhage times four, gastric bypass, bipolar, schizophrenia and depression. Placenta delivered spontaneously thereafter. Three-vessel cord, membranes and tissues intact. The uterus contracted well under a Pitocin intravenous (IV) push as well as IV running 125 mL an hour prophylaxis. Because of her previous hemorrhage, 1000 mg of Cytotec per rectum were given. In reviewing the anterior posterior lateral love were intact. Sphincter was tight. Uterus remained contracted. Estimated blood loss 200 mL. The patient and baby tolerated the procedure well.
[2019-11-05 18:18] VITALS: BP 105/69
[2019-11-06 06:00] VITALS: BP 114/73
[2019-11-06] MEDS ORDERED: IBUPROFEN 600 MG TAB PO ONE (08:00)
--- NOTE | 2019-11-06 08:52 | IPNPDOC ---
Progress Note Date of Service: Nov 06, 2019 Day#: 2 Progress Note SUBJECT: Hilda is a 29yo s/p uncomplicated on 04 November 2019, of a fe male , 3260g, intact perineum, doing well day #2. She has been ambulating, voiding spontaneously without issue and tolerating regular diet. Formula feeding only. Reports lochia is normal. OBJECTIVE: VITAL SIGNS: Within normal limits, afebrile. Alert and oriented times three. Observed nonlabored breathing. Abdomen: Fundus firm at U-2. Soft, NTTP. Minimal lochia. ASSESSMENT: PP Day #2, normal involution, stable and progressing well. Formula feeding only. PLAN: 1. Discharge to home today. 2. Motrin for pain PRN. 3. Encourage frequent ambulation. 4. Desires BTL for permanent contraception. 5. Routine PP visit in 6 weeks in clinic. 6. Discussed return precautions at length. VS, I&O, 24H, Fishbone Vital Signs/I&O Vital Signs Date Time Temp Pulse Resp B/P (MAP) Pulse Ox O2 Delivery O2 Flow Rate FiO2 11/06/19 06:00 98.7 70 16 114/73 (87) 98 Room Air LATRICIA MURPHY CNM Nov 06, 2019 08:52
--- NOTE | 2019-11-06 08:53 | OBDS ---
[facility] Obstetrical Discharge Sum. Obstetrical Discharge Summary Date: Nov 06, 2019 : 7 Term: 5 Pre-term: 0 Abortions: 2 Livin VDRL: Non-Reactive Infant Sex: Female Infant Weight: grams (3260) A/P, Post Course List any complications SUBJECT: Hilda is a 29yo s/p uncomplicated on 04 November 2019, of a female , 3260g, intact perineum, doing well day #2. She has been ambulating, voiding spontaneously without issue and tolerating regular diet. Formula feeding only. Reports lochia is normal. OBJECTIVE: VITAL SIGNS: Within normal limits, afebrile. Alert and oriented times three. Observed nonlabored breathing. Abdomen: Fundus firm at U-2. Soft, NTTP. Minimal lochia. ASSESSMENT: PP Day #2, normal involution, stable and progressing well. Formula feeding only. PLAN: 1. Discharge to home today. 2. Motrin for pain PRN. 3. Encourage frequent ambulation. 4. Desires BTL for permanent contraception. 5. Routine PP visit in 6 weeks in clinic. 6. Discussed return precautions at length. LATRICIA MURPHY CNM Nov 06, 2019 08:53
[2019-11-06] MEDS ORDERED: DIBU10OI TOP (08:56)
[2019-11-06] MEDS ORDERED: DOCU100C16 PO (08:56)
[2019-11-06] MEDS: PRENATAL VITAMINS CHEWABLE TABLET PO SCH (10:12)
== END 2019-11-06 13:40 | disposition home or self-care (01) | DRG 807 ==
LOC: M LDI 06:36 → M OBS 11-05 00:51
PROVIDERS: ADMIT Obstetrics & Gynecology; ATTEND Obstetrics & Gynecology
PROC: 10E0XZZ Delivery of Products of Conception, External Approach (ICD-10-PCS; principal; 2019-11-04)
PROC: 10907ZC Drainage of Amniotic Fluid, Therapeutic from Products of Conception, Via Natural or Artificial Opening (ICD-10-PCS; 2019-11-04)
PROC: 3E0P7GC Introduction of Other Therapeutic Substance into Female Reproductive, Via Natural or Artificial Opening (ICD-10-PCS; 2019-11-04)
DX: O99.02 Anemia complicating childbirth (principal); Z37.0 Single live birth; D64.9 Anemia, unspecified; O99.344 Other mental disorders complicating childbirth; F31.9 Bipolar disorder, unspecified; F20.9 Schizophrenia, unspecified; O99.844 Bariatric surgery status complicating childbirth; Z3A.39 39 weeks gestation of pregnancy